=== PATIENT | male | born 1960 | race Caucasian/White ===

== ENCOUNTER 2017-10-06 10:21 | Inpatient (IN) | payer OTHER ==
[2017-10-06] MEDS: MIDAZOLAM (DRIP) 50 mg/50 mL 50 ML IV (10:52)
[2017-10-06] MEDS: ROCURONIUM 50 MG INJ IV (10:52)
[2017-10-06 10:55] LABS: ADD MAN DIFF? NO
[2017-10-06] MEDS: MIDAZOLAM 1 MG/ML 2 ML INJ IV (10:56)
[2017-10-06 10:58] LABS: BASOPHILS % 0.6 % (0.0-2.0); EOSINOPHILS # 0.5 10^3/ul (0.0-0.5); EOSINOPHILS % 7.3 % (0.0-7.0); HEMATOCRIT 31.3 % (42.0-52.0); HEMOGLOBIN 9.7 g/dl (14.0-18.0); LYMPHOCYTES # 1.8 10^3/ul (0.8-2.9); MEAN CORPUSCULAR HEMOGLOBIN 31.6 pg (29.0-33.0); MEAN PLATELET VOLUME 12.6 fl (7.4-10.4); MONOCYTE # 0.5 10^3/ul (0.3-0.9); MONOCYTES % 7.3 % (0.0-11.0); NEUTROPHILS % 58.1 % (39.0-77.0); PLATELET COUNT 117 10^3/UL (140-415); RED BLOOD COUNT 3.07 10^6/ul (4.70-6.10); RED CELL DISTRIBUTION WIDTH 15.9 % (11.5-14.5)
[2017-10-06] MEDS: FENTAnyl (DRIP) 1000 mcg/100mL 100 ML IV (11:00)
[2017-10-06 11:20] LABS: INR 1.13; PROTIME 14.7 Sec (11.9-14.9); PT RATIO 1.1
[2017-10-06 11:30] LABS: PARTIAL THROMBOPLASTIN TIME 26.2 Sec (25.0-35.0)
[2017-10-06 11:36] LABS: ALANINE AMINOTRANSFERASE 32 IU/L (13-69); ALBUMIN 3.7 g/dl (3.3-4.9); ALBUMIN/GLOBULIN RATIO 1.48; ALKALINE PHOSPHATASE 86 IU/L (42-121); ANION GAP 32 (8-16); ASPARTATE AMINO TRANSFERASE 24 IU/L (15-46); BLOOD UREA NITROGEN 61 mg/dl (7-20); CALCIUM 8.9 mg/dl (8.4-10.2); CARBON DIOXIDE 22 mmol/L (21-31); CHLORIDE 100 mmol/L (97-110); CREATININE 8.94 mg/dl (0.61-1.24); GLUCOSE 176 mg/dl (70-220); MAGNESIUM 2.1 mg/dl (1.7-2.5); SODIUM 146 mmol/L (135-144); TOTAL PROTEIN 6.2 g/dl (6.1-8.1)
[2017-10-06 11:37] LABS: LACTIC ACID 1.7 mmol/L (0.5-2.0)
[2017-10-06] MEDS ORDERED: CA CHLORIDE 10% 10 ML SYRINGE (11:40)
[2017-10-06 11:43] LABS: ETHANOL < 10.0 mg/dl; POTASSIUM 8.2 mmol/L (3.5-5.1)
[2017-10-06 11:44] LABS: AMMONIA < 9 umol/l (9-30)
[2017-10-06] MEDS ORDERED: LIDOCAINE 1% (MDV) 20 ML INJ (11:47)
[2017-10-06] MEDS ORDERED: SOD CHLORIDE 0.9% 500 ML (11:47)
[2017-10-06 11:55] LABS: TROPONIN-I 0.018 ng/ml (0.000-0.120)
[2017-10-06] MEDS: ETOMIDATE 20 MG INJ IV (12:20)
[2017-10-06] MEDS: FENTAnyl 50 MCG/ML VIAL IV (12:21)
[2017-10-06] MEDS: hydrALAzine 20 MG INJ IV ×3 (12:31→22:08)
[2017-10-06] MEDS: CALCIUM GLUCONATE 10% 1 GM in DEXTROSE 5% 100 ML IVPB (12:31)
[2017-10-06] MEDS: NA BICARBONATE 8.4% 50 ML SYG IV (12:31)
[2017-10-06 13:17] LABS: AADO2 Arterial 369.4 mmHg (7.0-24.0); Allen Test ACCEPTAB; Arterial Base Excess -0.1 mmol/L (-3.0-3); Arterial Blood Gas Oxygen Sat 99.3 mmHG (95.0-98.0); Arterial COHb 0.3 % (0.0-3.0); Arterial Fraction of Oxyhgb 98.8 % (93.0-99.0); Arterial HCO3 23.9 mmol/L (22.0-26.0); Arterial MetHb 0.2 % (0.0-1.5); Arterial Total Hemglobin 11.5 g/dl (12.0-18.0); Arterial pCO2 36.4 mmhg (35-45); MODE VENT - AC; Site Right Radial
[2017-10-06] MEDS: NA POLYST SULFON 15 GM/60 ML BTL PO (13:18)
[2017-10-06 13:19] LABS: ADD UMIC YES; UR ASCORBIC ACID NEGATIVE (NEGATIVE); UR BILIRUBIN (Dip) NEGATIVE (NEGATIVE); UR BLOOD (Dip) 1+ mg/dL (NEGATIVE); UR CLARITY CLEAR (CLEAR); UR COLOR STRAW (YELLOW); UR GLUCOSE (Dip) 2+ mg/dL (NEGATIVE); UR KETONES (Dip) NEGATIVE (NEGATIVE); UR LEUKOCYTE ESTERASE (Dip) NEGATIVE Leu/ul (NEGATIVE); UR NITRITE (Dip) NEGATIVE (NEGATIVE); UR RBC 0 /HPF (0-5); UR SPECIFIC GRAVITY (Dip) 1.005 (1.003-1.030); UR TOTAL PROTEIN (Dip) 2+ mg/dl (NEGATIVE); UR UROBILINOGEN (Dip) NEGATIVE (NEGATIVE); UR WBC 0 /HPF (0-5)
[2017-10-06] MEDS ORDERED: ONDANSETRON 4 MG INJ IV (13:30)
[2017-10-06] MEDS ORDERED: ALBUTEROL HFA 8 GM INHALER INH (13:30)
[2017-10-06] MEDS ORDERED: INSULIN ASPART [NOVOLOG] 3 ML PEN SC (13:30)
[2017-10-06 13:43] LABS: AMPHETAMINE/METHAMPHETAMINE NEGATIVE (NEGATIVE); BARBITURATES NEGATIVE (NEGATIVE); BENZODIAZEPINES NEGATIVE (NEGATIVE); CANNABINOIDS NEGATIVE (NEGATIVE); COCAINE NEGATIVE (NEGATIVE)
[2017-10-06] MEDS ORDERED: GLUCAGON 1 MG INJ IM (14:30)
[2017-10-06] MEDS ORDERED: DEXTROSE 50% 50 ML SYRINGE IV ×2 (14:30)
[2017-10-06] MEDS ORDERED: GLUCOSE GEL 15 GRAM TUBE BUCCAL (14:30)
[2017-10-06] MEDS ORDERED: GLUCOSE GEL 15 GRAM TUBE PO ×2 (14:30)
[2017-10-06] MEDS: FENOFIBRATE 145 MG TAB PO (14:30)
[2017-10-06 15:06] LABS: LACTIC ACID 0.8 mmol/L (0.5-2.0)
[2017-10-06] MEDS: FAMOTIDINE 20 MG INJ IV (15:22)
[2017-10-06] MEDS: PROPOFOL 100 ML IV ×2 (15:22→22:16)
[2017-10-06] MEDS: HEPARIN 5,000 UNIT/0.5 ML VIAL SC ×2 (15:23→21:42)
[2017-10-06 15:39] LABS: OPIATES NEGATIVE (NEGATIVE)
[2017-10-06 16:07] LABS: FREE THYROXINE INDEX (Calc) 1.94 ug/ml (0.65-3.89); T3 UPTAKE 37.4 % (23.5-40.5); T4 (THYROXINE) 5.2 ug/dl (5.5-11.0)
[2017-10-06 16:31] LABS: HEPATITIS B SURFACE ANTIGEN NEGATIVE (NEGATIVE)
[2017-10-06] MEDS: INSULIN ASPART [NOVOLOG] 3 ML PEN SC ×2 (17:00→21:00)
[2017-10-06] MEDS ORDERED: ALBUMIN HUMAN 25% 100 ML (17:06)
[2017-10-06 17:11] LABS: FOLATE 7.7 ng/ml (2.8-20.0)
[2017-10-06 17:24] LABS: LACTIC ACID 0.5 mmol/L (0.5-2.0)
[2017-10-06] MEDS: ALBUMIN HUMAN 25% 100 ML IV (17:52)
[2017-10-06] MEDS: ATORVASTATIN 10 MG TAB PO (21:24)
[2017-10-06] MEDS: AMLODIPINE 10 MG TAB PO (21:24)
[2017-10-07] MEDS: INSULIN ASPART [NOVOLOG] 3 ML PEN SC ×6 (01:00→21:00)
[2017-10-07] MEDS: hydrALAzine 20 MG INJ IV (04:52)
[2017-10-07] MEDS: PROPOFOL 100 ML IV (04:52)
[2017-10-07] MEDS: HEPARIN 5,000 UNIT/0.5 ML VIAL SC ×3 (05:01→22:20)
[2017-10-07 06:36] LABS: ALANINE AMINOTRANSFERASE 27 IU/L (13-69); ALBUMIN 4.3 g/dl (3.3-4.9); ALKALINE PHOSPHATASE 56 IU/L (42-121); ANION GAP 22 (8-16); ASPARTATE AMINO TRANSFERASE 25 IU/L (15-46); BLOOD UREA NITROGEN 31 mg/dl (7-20); CALCIUM 8.5 mg/dl (8.4-10.2); CARBON DIOXIDE 28 mmol/L (21-31); CHLORIDE 97 mmol/L (97-110); CREATININE 6.56 mg/dl (0.61-1.24); GLUCOSE 93 mg/dl (70-220); POTASSIUM 4.2 mmol/L (3.5-5.1); SODIUM 143 mmol/L (135-144); TOTAL PROTEIN 7.6 g/dl (6.1-8.1)
[2017-10-07] MEDS: FENOFIBRATE 145 MG TAB PO (08:36)
[2017-10-07] MEDS ORDERED: LISINOPRIL 20 MG TAB PO (09:00)
[2017-10-07 11:12] LABS: AADO2 Arterial 69.3 mmHg (7.0-24.0); Allen Test ACCEPTAB; Arterial Base Excess 2.2 mmol/L (-3.0-3); Arterial Blood Gas Oxygen Sat 98.2 mmHG (95.0-98.0); Arterial COHb 0.2 % (0.0-3.0); Arterial Fraction of Oxyhgb 97.7 % (93.0-99.0); Arterial HCO3 27.4 mmol/L (22.0-26.0); Arterial MetHb 0.3 % (0.0-1.5); Arterial Total Hemglobin 11.6 g/dl (12.0-18.0); Arterial pCO2 45.2 mmhg (35-45); Blood Gas PS 10; MODE VENT - CPAP; Site Right Radial
[2017-10-07] MEDS ORDERED: SODIUM CHLORIDE 0.9% 1L BAG IV (11:30)
[2017-10-07] MEDS ORDERED: ALBUMIN HUMAN 25% 50 ML IV (11:30)
[2017-10-07] MEDS: FAMOTIDINE 20 MG INJ IV (14:47)
[2017-10-07] MEDS: ATORVASTATIN 10 MG TAB PO (21:29)
[2017-10-07] MEDS: AMLODIPINE 10 MG TAB PO (21:30)
[2017-10-08] MEDS ORDERED: traMADol 50 MG TAB PO (05:00)
[2017-10-08] MEDS: ACETAMINOPHEN 325 MG TAB PO (05:08)
[2017-10-08] MEDS: HEPARIN 5,000 UNIT/0.5 ML VIAL SC ×3 (05:09→20:35)
[2017-10-08] MEDS ORDERED: CA CHLORIDE 10% 10 ML SYRINGE (07:00)
[2017-10-08] MEDS ORDERED: ATROPINE 1 MG/10 ML SYRINGE (07:00)
[2017-10-08] MEDS ORDERED: ETOMIDATE 20 MG INJ (07:00)
[2017-10-08] MEDS ORDERED: ROCURONIUM 50 MG INJ (07:00)
[2017-10-08] MEDS ORDERED: NA BICARBONATE 8.4% 50 ML SYG (07:00)
[2017-10-08 07:54] LABS: ADD MAN DIFF? NO
[2017-10-08 07:59] LABS: BASOPHILS % 0.3 % (0.0-2.0); EOSINOPHILS # 0.1 10^3/ul (0.0-0.5); HEMATOCRIT 32.7 % (42.0-52.0); HEMOGLOBIN 10.3 g/dl (14.0-18.0); LYMPHOCYTES # 1.2 10^3/ul (0.8-2.9); MEAN CORPUSCULAR HEMOGLOBIN 31.2 pg (29.0-33.0); MEAN CORPUSCULAR HGB CONC 31.5 g/dl (32.0-37.0); MEAN CORPUSCULAR VOLUME 99.1 fl (82.0-101.0); MEAN PLATELET VOLUME 12.7 fl (7.4-10.4); MONOCYTE # 1.1 10^3/ul (0.3-0.9); MONOCYTES % 8.1 % (0.0-11.0); NEUTROPHIL # 10.5 10^3/ul (1.6-7.5); NEUTROPHILS % 81.1 % (39.0-77.0); PLATELET COUNT 133 10^3/UL (140-415); RED CELL DISTRIBUTION WIDTH 15.3 % (11.5-14.5)
[2017-10-08] MEDS: FENOFIBRATE 145 MG TAB PO (08:26)
[2017-10-08] MEDS: INSULIN ASPART [NOVOLOG] 3 ML PEN SC ×4 (08:30→20:36)
[2017-10-08 08:53] LABS: AADO2 Arterial 74.2 mmHg (7.0-24.0); Allen Test ACCEPTAB; Arterial Base Excess 8.1 mmol/L (-3.0-3); Arterial Blood Gas Oxygen Sat 90.7 mmHG (95.0-98.0); Arterial COHb 0.5 % (0.0-3.0); Arterial Fraction of Oxyhgb 90.1 % (93.0-99.0); Arterial HCO3 33.9 mmol/L (22.0-26.0); Arterial MetHb 0.2 % (0.0-1.5); Arterial pCO2 53.6 mmhg (35-45); MODE NASAL CANNULA; Site Right Radial
[2017-10-08 09:20] LABS: ANION GAP 17 (8-16); BLOOD UREA NITROGEN 30 mg/dl (7-20); CALCIUM 8.2 mg/dl (8.4-10.2); CARBON DIOXIDE 33 mmol/L (21-31); CHLORIDE 99 mmol/L (97-110); CREATININE 6.11 mg/dl (0.61-1.24); GLUCOSE 150 mg/dl (70-220); PHOSPHORUS 4.6 mg/dl (2.5-4.9); POTASSIUM 4.3 mmol/L (3.5-5.1); SODIUM 145 mmol/L (135-144)
[2017-10-08] MEDS ORDERED: SODIUM CHLORIDE 0.9% 1L BAG IV (12:30)
[2017-10-08] MEDS ORDERED: ALBUMIN HUMAN 25% 50 ML IV (12:30)
[2017-10-08] MEDS: FAMOTIDINE 20 MG INJ IV (14:09)
[2017-10-08] MEDS: ATORVASTATIN 10 MG TAB PO (20:21)
[2017-10-08] MEDS: AMLODIPINE 10 MG TAB PO (20:22)
[2017-10-09] MEDS: HEPARIN 5,000 UNIT/0.5 ML VIAL SC ×2 (05:23→13:18)
[2017-10-09] MEDS: SEVELAMER CARBONATE 2.4 GM PKT PO ×2 (08:00→12:01)
[2017-10-09] MEDS: INSULIN ASPART [NOVOLOG] 3 ML PEN SC ×2 (08:45→11:30)
[2017-10-09] MEDS: FUROSEMIDE 20 MG TAB PO (09:00)
[2017-10-09] MEDS: FENOFIBRATE 145 MG TAB PO ×2 (09:00→12:01)
[2017-10-09] MEDS: ACETAMINOPHEN 325 MG TAB PO (12:02)
[2017-10-09] MEDS: FAMOTIDINE 20 MG INJ IV (13:15)
== END 2017-10-09 15:07 | disposition home or self-care (01) | DRG 260 ==
LOC: E/R 10:21 → MS4 13:35 → ICU 12:51
PROC: 02HK3JZ Insertion of Pacemaker Lead into Right Ventricle, Percutaneous Approach (ICD-10-PCS; principal; 2017-10-06 11:09)
PROC: 5A1935Z Respiratory Ventilation, Less than 24 Consecutive Hours (ICD-10-PCS; 2017-10-06 11:09)
PROC: 0BH17EZ Insertion of Endotracheal Airway into Trachea, Via Natural or Artificial Opening (ICD-10-PCS; 2017-10-06 11:09)
PROC: 5A1D70Z Performance of Urinary Filtration, Intermittent, Less than 6 Hours Per Day (ICD-10-PCS; 2017-10-06 11:09)
DX: R00.1 Bradycardia, unspecified (principal); G93.40 Encephalopathy, unspecified; N18.6 End stage renal disease; J96.90 Respiratory failure, unspecified, unspecified whether with hypoxia or hypercapnia; I12.0 Hypertensive chronic kidney disease with stage 5 chronic kidney disease or end stage renal disease; E87.5 Hyperkalemia; D63.1 Anemia in chronic kidney disease; E11.22 Type 2 diabetes mellitus with diabetic chronic kidney disease; Z99.2 Dependence on renal dialysis; Z87.891 Personal history of nicotine dependence; Z91.11 Patient's noncompliance with dietary regimen
CPT/HCPCS: 36415; 36600; 70450; 71045; 80048; 80053; 80307; 81001; 82140; 82607; 82746; 82803; 82962; 83605; 83735; 84100; 84436; 84479; 84484; 85025; 85610; 85730; 87040; 87081; 87340; 90935; 93005; 93306; 94002; 94003; 94770; 96374; 96375; 97116; 97162; 97530; 99291-25

== ENCOUNTER 2018-08-13 10:47 | Inpatient (IN) | payer OTHER ==
[2018-08-13 12:29] LABS: ADD MAN DIFF? NO
[2018-08-13 12:31] LABS: WHITE BLOOD COUNT 7.5 10^3/ul (4.8-10.8)
[2018-08-13 12:31] LABS: ABNORMAL IP MESSAGE 1; BASOPHIL # 0.1 10^3/ul (0.0-0.1); BASOPHILS % 0.7 % (0.0-2.0); EOSINOPHILS # 0.4 10^3/ul (0.0-0.5); EOSINOPHILS % 5.5 % (0.0-7.0); HEMATOCRIT 29.1 % (42.0-52.0); HEMOGLOBIN 9.4 g/dl (14.0-18.0); LYMPHOCYTES # 0.5 10^3/ul (0.8-2.9); LYMPHOCYTES % 7.2 % (15.0-51.0); MEAN CORPUSCULAR HGB CONC 32.3 g/dl (32.0-37.0); MEAN PLATELET VOLUME 12.5 fl (7.4-10.4); MONOCYTE # 0.6 10^3/ul (0.3-0.9); MONOCYTES % 7.7 % (0.0-11.0); NEUTROPHIL # 5.9 10^3/ul (1.6-7.5); NEUTROPHILS % 78.5 % (39.0-77.0); PLATELET COUNT 110 10^3/UL (140-415); RED BLOOD COUNT 3.03 10^6/ul (4.70-6.10); RED CELL DISTRIBUTION WIDTH 14.5 % (11.5-14.5)
[2018-08-13 12:50] LABS: ALANINE AMINOTRANSFERASE 12 IU/L (13-69); ALBUMIN 4.2 g/dl (3.3-4.9); ALBUMIN/GLOBULIN RATIO 1.31; ALKALINE PHOSPHATASE 84 IU/L (42-121); ANION GAP 11 (5-13); ASPARTATE AMINO TRANSFERASE 21 IU/L (15-46); BILIRUBIN,INDIRECT 0.4 mg/dl (0-1.1); BILIRUBIN,TOTAL 0.4 mg/dl (0.2-1.3); BLOOD UREA NITROGEN 20 mg/dl (7-20); CALCIUM 8.7 mg/dl (8.4-10.2); CARBON DIOXIDE 29 mmol/L (21-31); CHLORIDE 96 mmol/L (97-110); CREATININE 4.82 mg/dl (0.61-1.24); Estimated GFR 13 mL/min (>60); GLUCOSE 106 mg/dl (70-220); SODIUM 136 mmol/L (135-144); TOTAL PROTEIN 7.4 g/dl (6.1-8.1)
[2018-08-13 12:53] LABS: INR 1.07; PT RATIO 1.1
[2018-08-13] MEDS: ACETAMINOPHEN 325 MG TAB PO (12:58)
[2018-08-13 13:01] LABS: TROPONIN-I 0.021 ng/ml (0.000-0.120)
[2018-08-13] MEDS ORDERED: ONDANSETRON 4 MG INJ IV (13:30)
[2018-08-13] MEDS ORDERED: ACETAMINOPHEN 325 MG TAB PO (13:30)
[2018-08-13] MEDS: VANCOMYCIN 1 GM (PMX) 250 ML IVPB (13:30)
[2018-08-13] MEDS: CEFEPIME 1GM/50 ML (PMX) 50 ML IVPB (14:29)
[2018-08-13] MEDS ORDERED: NACL 0.9% 3 ML SYG IV (14:30)
[2018-08-13] MEDS ORDERED: ZOLPIDEM 5 MG TAB PO (14:30)
[2018-08-13 16:00] LABS: LACTIC ACID 0.7 mmol/L (0.5-2.0)
[2018-08-13] MEDS: LISINOPRIL 20 MG TAB PO (16:53)
[2018-08-13] MEDS: FAMOTIDINE 20 MG TAB PO (16:53)
[2018-08-13] MEDS: AMLODIPINE 10 MG TAB PO (16:53)
[2018-08-13] MEDS: FUROSEMIDE 20 MG TAB PO (16:53)
[2018-08-13] MEDS: SEVELAMER CARBONATE 800 MG TABLET PO (18:08)
[2018-08-13] MEDS: ACETAMINOPHEN 500 MG TAB PO (20:28)
[2018-08-13] MEDS ORDERED: DEXTROSE 50% 50 ML SYRINGE IV ×2 (20:30)
[2018-08-13] MEDS ORDERED: GLUCOSE GEL 15 GRAM TUBE BUCCAL (20:30)
[2018-08-13] MEDS ORDERED: GLUCAGON 1 MG INJ IM (20:30)
[2018-08-13] MEDS ORDERED: GLUCOSE GEL 15 GRAM TUBE PO ×2 (20:30)
[2018-08-13] MEDS: INSULIN ASPART [NOVOLOG] 3 ML PEN SC (21:00)
[2018-08-14] MEDS: ACETAMINOPHEN 500 MG TAB PO ×3 (02:33→21:04)
[2018-08-14 06:30] LABS: ADD MAN DIFF? NO
[2018-08-14 06:32] LABS: BASOPHIL # 0.1 10^3/ul (0.0-0.1); BASOPHILS % 0.7 % (0.0-2.0); EOSINOPHILS % 0.4 % (0.0-7.0); HEMATOCRIT 28.1 % (42.0-52.0); HEMOGLOBIN 8.9 g/dl (14.0-18.0); LYMPHOCYTES # 0.7 10^3/ul (0.8-2.9); LYMPHOCYTES % 8.7 % (15.0-51.0); MEAN CORPUSCULAR HEMOGLOBIN 30.3 pg (29.0-33.0); MEAN CORPUSCULAR HGB CONC 31.7 g/dl (32.0-37.0); MEAN CORPUSCULAR VOLUME 95.6 fl (82.0-101.0); MEAN PLATELET VOLUME 12.4 fl (7.4-10.4); MONOCYTE # 0.7 10^3/ul (0.3-0.9); MONOCYTES % 8.1 % (0.0-11.0); NEUTROPHIL # 6.5 10^3/ul (1.6-7.5); NEUTROPHILS % 81.6 % (39.0-77.0); PLATELET COUNT 104 10^3/UL (140-415); RED BLOOD COUNT 2.94 10^6/ul (4.70-6.10); RED CELL DISTRIBUTION WIDTH 14.4 % (11.5-14.5)
[2018-08-14 06:59] LABS: CHOL/HDL RATIO 4.2 RATIO; HDL CHOLESTEROL 22 mg/dl (28-71); LDL CHOLESTEROL,CALCULATED 33 mg/dl; TRIGLYCERIDES 195 mg/dl (0-149)
[2018-08-14 06:59] LABS: CHOLESTEROL 94 mg/dl (100-200)
[2018-08-14 07:08] LABS: ANION GAP 17 (5-13); BLOOD UREA NITROGEN 35 mg/dl (7-20); CALCIUM 8.3 mg/dl (8.4-10.2); CARBON DIOXIDE 23 mmol/L (21-31); CHLORIDE 95 mmol/L (97-110); Estimated GFR 8 mL/min (>60); GLUCOSE 71 mg/dl (70-220); POTASSIUM 4.1 mmol/L (3.5-5.1); SODIUM 135 mmol/L (135-144)
[2018-08-14 07:20] LABS: HEMOGLOBIN A1C 6.2 % (0-5.9)
[2018-08-14] MEDS: INSULIN ASPART [NOVOLOG] 3 ML PEN SC ×4 (08:00→20:50)
[2018-08-14] MEDS: FAMOTIDINE 20 MG TAB PO (08:17)
[2018-08-14] MEDS: SEVELAMER CARBONATE 800 MG TABLET PO ×3 (08:17→17:28)
[2018-08-14] MEDS: FUROSEMIDE 20 MG TAB PO (08:18)
[2018-08-14] MEDS: LISINOPRIL 20 MG TAB PO (08:18)
[2018-08-14] MEDS: AMLODIPINE 10 MG TAB PO (08:18)
[2018-08-14] MEDS: LEVOFLOXACIN 250MG/D5W (PMX) 50 ML IVPB (09:30)
[2018-08-14] MEDS ORDERED: VANCOMYCIN IV PER PHARMACY XX (11:00)
[2018-08-14] MEDS: HEPARIN 5,000 UNIT/1 ML VIAL SC (20:51)
[2018-08-14] MEDS: GUAIFENESIN 20 MG/ML 5ML CUP PO (22:29)
[2018-08-15 07:15] LABS: ADD MAN DIFF? NO
[2018-08-15 07:27] LABS: WHITE BLOOD COUNT 6.4 10^3/ul (4.8-10.8)
[2018-08-15 07:27] LABS: BASOPHILS % 0.5 % (0.0-2.0); EOSINOPHILS # 0.2 10^3/ul (0.0-0.5); EOSINOPHILS % 2.8 % (0.0-7.0); HEMATOCRIT 27.2 % (42.0-52.0); HEMOGLOBIN 8.8 g/dl (14.0-18.0); LYMPHOCYTES % 15.2 % (15.0-51.0); MEAN CORPUSCULAR HEMOGLOBIN 30.3 pg (29.0-33.0); MEAN CORPUSCULAR HGB CONC 32.4 g/dl (32.0-37.0); MEAN CORPUSCULAR VOLUME 93.8 fl (82.0-101.0); MEAN PLATELET VOLUME 12.4 fl (7.4-10.4); MONOCYTE # 0.6 10^3/ul (0.3-0.9); MONOCYTES % 9.4 % (0.0-11.0); NEUTROPHIL # 4.6 10^3/ul (1.6-7.5); NEUTROPHILS % 71.5 % (39.0-77.0); PLATELET COUNT 105 10^3/UL (140-415); RED CELL DISTRIBUTION WIDTH 14.4 % (11.5-14.5)
[2018-08-15 07:44] LABS: ANION GAP 16 (5-13); BLOOD UREA NITROGEN 61 mg/dl (7-20); CALCIUM 8.3 mg/dl (8.4-10.2); CARBON DIOXIDE 23 mmol/L (21-31); CHLORIDE 95 mmol/L (97-110); CREATININE 9.78 mg/dl (0.61-1.24); Estimated GFR 6 mL/min (>60); GLUCOSE 97 mg/dl (70-220); POTASSIUM 4.4 mmol/L (3.5-5.1); SODIUM 134 mmol/L (135-144)
[2018-08-15 07:55] LABS: PHOSPHORUS 3.8 mg/dl (2.5-4.9)
[2018-08-15 07:55] LABS: MAGNESIUM 2.3 mg/dl (1.7-2.5)
[2018-08-15] MEDS: SEVELAMER CARBONATE 800 MG TABLET PO ×3 (08:00→17:21)
[2018-08-15] MEDS: INSULIN ASPART [NOVOLOG] 3 ML PEN SC ×4 (08:00→20:46)
[2018-08-15] MEDS: ONDANSETRON 4 MG INJ IV (08:01)
[2018-08-15] MEDS: FUROSEMIDE 20 MG TAB PO (08:07)
[2018-08-15] MEDS: AMLODIPINE 10 MG TAB PO (08:08)
[2018-08-15] MEDS: FAMOTIDINE 20 MG TAB PO (08:08)
[2018-08-15] MEDS: LISINOPRIL 20 MG TAB PO (08:08)
[2018-08-15] MEDS: HEPARIN 5,000 UNIT/1 ML VIAL SC ×2 (08:16→20:43)
[2018-08-15] MEDS: VANCOMYCIN 1 GM 250 ML IVPB (14:07)
[2018-08-16 06:51] LABS: ADD MAN DIFF? NO
[2018-08-16 07:00] LABS: WHITE BLOOD COUNT 5.3 10^3/ul (4.8-10.8)
[2018-08-16 07:00] LABS: BASOPHILS % 0.4 % (0.0-2.0); EOSINOPHILS # 0.4 10^3/ul (0.0-0.5); HEMATOCRIT 27.1 % (42.0-52.0); HEMOGLOBIN 8.8 g/dl (14.0-18.0); LYMPHOCYTES # 1.3 10^3/ul (0.8-2.9); LYMPHOCYTES % 24.6 % (15.0-51.0); MEAN CORPUSCULAR HEMOGLOBIN 29.8 pg (29.0-33.0); MEAN CORPUSCULAR HGB CONC 32.5 g/dl (32.0-37.0); MEAN CORPUSCULAR VOLUME 91.9 fl (82.0-101.0); MONOCYTE # 0.5 10^3/ul (0.3-0.9); MONOCYTES % 9.5 % (0.0-11.0); NEUTROPHIL # 3.1 10^3/ul (1.6-7.5); NEUTROPHILS % 57.9 % (39.0-77.0); PLATELET COUNT 112 10^3/UL (140-415); RED BLOOD COUNT 2.95 10^6/ul (4.70-6.10); RED CELL DISTRIBUTION WIDTH 14.4 % (11.5-14.5)
[2018-08-16 07:29] LABS: ANION GAP 17 (5-13); BLOOD UREA NITROGEN 77 mg/dl (7-20); CALCIUM 8.3 mg/dl (8.4-10.2); CARBON DIOXIDE 21 mmol/L (21-31); CHLORIDE 96 mmol/L (97-110); Estimated GFR 5 mL/min (>60); GLUCOSE 118 mg/dl (70-220); POTASSIUM 4.6 mmol/L (3.5-5.1); SODIUM 134 mmol/L (135-144)
[2018-08-16] MEDS: INSULIN ASPART [NOVOLOG] 3 ML PEN SC ×2 (08:00→12:35)
[2018-08-16] MEDS: FUROSEMIDE 20 MG TAB PO (08:56)
[2018-08-16] MEDS: LISINOPRIL 20 MG TAB PO (08:57)
[2018-08-16] MEDS: AMLODIPINE 10 MG TAB PO (08:57)
[2018-08-16] MEDS: SEVELAMER CARBONATE 800 MG TABLET PO ×2 (09:02→12:32)
[2018-08-16] MEDS: LEVOFLOXACIN 250MG/D5W (PMX) 50 ML IVPB ×2 (09:02→12:31)
[2018-08-16] MEDS: HEPARIN 5,000 UNIT/1 ML VIAL SC (09:04)
[2018-08-16] MEDS: FAMOTIDINE 20 MG TAB PO (09:14)
[2018-08-16 09:47] LABS: HEPATITIS B SURFACE ANTIGEN NEGATIVE (NEGATIVE)
[2018-08-16 11:45] LABS: HEPATITIS B SURFACE ANTIBODY INDETERMINATE (NEGATIVE)
== END 2018-08-16 16:57 | disposition home health service (06) | DRG 193 ==
LOC: E/R 10:47 → 5EC 14:41
PROC: 5A1D70Z Performance of Urinary Filtration, Intermittent, Less than 6 Hours Per Day (ICD-10-PCS; principal; 2018-08-16)
DX: J18.9 Pneumonia, unspecified organism (principal); N18.6 End stage renal disease; I13.2 Hypertensive heart and chronic kidney disease with heart failure and with stage 5 chronic kidney disease, or end stage renal disease; E78.5 Hyperlipidemia, unspecified; E11.22 Type 2 diabetes mellitus with diabetic chronic kidney disease; I50.9 Heart failure, unspecified; Y95 Nosocomial condition; Z99.2 Dependence on renal dialysis; Z79.4 Long term (current) use of insulin; Z89.421 Acquired absence of other right toe(s)
CPT/HCPCS: 36415; 71045; 80048; 80053; 80061; 80202; 82962; 83036; 83605; 83735; 84100; 84484; 85025; 85610; 85730; 86706; 87040-91; 87340; 87400; 90935; 93005; 96374; 97162; 99217; 99285-25

== ENCOUNTER 2018-12-30 10:11 | Emergency (ER) | payer BC, OTHER | END 2018-12-30 12:32 | disposition home or self-care (01) | LOC: FTE 10:11 | DX: M79.672 Pain in left foot (principal); E11.9 Type 2 diabetes mellitus without complications; Z79.84 Long term (current) use of oral hypoglycemic drugs | CPT/HCPCS: 73630; 73630-LT; 99283-25 ==

== ENCOUNTER 2019-01-01 11:18 | Emergency (ER) | payer BC ==
[2019-01-01 12:01] LABS: ADD MAN DIFF? NO
[2019-01-01 12:10] LABS: BASOPHIL # 0.1 10^3/ul (0.0-0.1); BASOPHILS % 0.8 % (0.0-2.0); EOSINOPHILS # 0.6 10^3/ul (0.0-0.5); EOSINOPHILS % 9.2 % (0.0-7.0); HEMATOCRIT 36.2 % (42.0-52.0); HEMOGLOBIN 11.3 g/dl (14.0-18.0); LYMPHOCYTES # 0.9 10^3/ul (0.8-2.9); LYMPHOCYTES % 14.8 % (15.0-51.0); MEAN CORPUSCULAR HEMOGLOBIN 28.9 pg (29.0-33.0); MEAN CORPUSCULAR HGB CONC 31.2 g/dl (32.0-37.0); MEAN CORPUSCULAR VOLUME 92.6 fl (82.0-101.0); MEAN PLATELET VOLUME 12.4 fl (7.4-10.4); MONOCYTE # 0.5 10^3/ul (0.3-0.9); MONOCYTES % 8.4 % (0.0-11.0); NEUTROPHIL # 4.1 10^3/ul (1.6-7.5); NEUTROPHILS % 66.5 % (39.0-77.0); PLATELET COUNT 148 10^3/UL (140-415); RED BLOOD COUNT 3.91 10^6/ul (4.70-6.10); RED CELL DISTRIBUTION WIDTH 15.2 % (11.5-14.5)
[2019-01-01 12:10] LABS: WHITE BLOOD COUNT 6.2 10^3/ul (4.8-10.8)
[2019-01-01 12:24] LABS: ALANINE AMINOTRANSFERASE 12 IU/L (13-69); ALBUMIN 4.2 g/dl (3.3-4.9); ALBUMIN/GLOBULIN RATIO 1.13; ALKALINE PHOSPHATASE 114 IU/L (42-121); ANION GAP 11 (5-13); ASPARTATE AMINO TRANSFERASE 22 IU/L (15-46); BILIRUBIN,INDIRECT 0.3 mg/dl (0-1.1); BILIRUBIN,TOTAL 0.3 mg/dl (0.2-1.3); BLOOD UREA NITROGEN 54 mg/dl (7-20); CALCIUM 8.5 mg/dl (8.4-10.2); CARBON DIOXIDE 31 mmol/L (21-31); CHLORIDE 94 mmol/L (97-110); CREATININE 7.79 mg/dl (0.61-1.24); Estimated GFR 7 mL/min (>60); GLUCOSE 126 mg/dl (70-220); POTASSIUM 5.3 mmol/L (3.5-5.1); SODIUM 136 mmol/L (135-144); TOTAL PROTEIN 7.9 g/dl (6.1-8.1)
[2019-01-01 12:29] LABS: INR 1.01; PROTIME 13.4 Sec (11.9-14.9)
[2019-01-01 12:37] LABS: C-REACTIVE PROTEIN 1.4 mg/dl (0.0-0.9)
[2019-01-01 13:18] LABS: ERYTHROCYTE SEDIMENTATION RATE 33 mm/Hr (0-20)
== END 2019-01-01 14:58 | disposition home or self-care (01) ==
LOC: E/R 11:18
DX: E13.621 Other specified diabetes mellitus with foot ulcer (principal); L97.509 Non-pressure chronic ulcer of other part of unspecified foot with unspecified severity; I50.9 Heart failure, unspecified; I13.2 Hypertensive heart and chronic kidney disease with heart failure and with stage 5 chronic kidney disease, or end stage renal disease; N18.6 End stage renal disease
CPT/HCPCS: 80053; 85025; 85610; 85651; 85730; 86140; 99283